=== PATIENT | female | born 1955 | race Caucasian/White ===

== ENCOUNTER 2016-11-25 11:25 | Inpatient (IN) | payer OTHER ==
[~2016-11-25 11:25] MED LIST: BACITRACIN 50,000 UNITS/10 ML SYR IRR ONE; BUPIVACAINE/EPI 0.25% 30 ML SDV ONE; DEXMEDETOMIDINE HCL 400 MCG in NS 100 ML IV SCH; THROMBIN (BOVINE) 5,000 UNIT VIAL TP ONE; ceFAZolin 2 GM/DEXTROSE 100 ML IV ONE
[2016-11-25] MEDS ORDERED: LR 1,000 ML IV ONE (12:41)
[2016-11-25] MEDS ORDERED: LIDOCAINE 1% 5 ML SDV ID PRN (12:41)
[2016-11-25] MEDS ORDERED: CEFAZOLIN 2 GM/DEXTROSE/100 ML BAG IV ONE (12:45)
[2016-11-25] MEDS ORDERED: DIAZEPAM 10 MG/2 ML SYR IVP PRN (13:02)
[2016-11-25] MEDS ORDERED: morphINE PCA 30 MG/30 ML PCA IV PRN (13:02)
[2016-11-25] MEDS ORDERED: HYDROmorphONE/DILAUDID 1 MG/ML SYR IVP PRN (13:02)
[2016-11-25] MEDS ORDERED: ONDANSETRON DISINTEGRATING 4 MG TAB PO PRN (13:02)
[2016-11-25] MEDS ORDERED: diphenhydrAMINE 25 MG CAP PO PRN (13:02)
[2016-11-25] MEDS ORDERED: ACETAMINOPHEN 325 MG TAB PO PRN (13:02)
[2016-11-25] MEDS ORDERED: BISACODYL 10 MG SUPP PR PRN (13:02)
[2016-11-25] MEDS ORDERED: TEMAZEPAM 15 MG CAP PO PRN (13:02)
[2016-11-25] MEDS ORDERED: POLYETHYLENE GLYCOL 3350 17 GM PKT PO PRN (13:02)
[2016-11-25] MEDS ORDERED: oxyCODONE IR 5 MG TAB PO PRN (13:02)
[2016-11-25] MEDS ORDERED: MAGNESIUM HYDROXIDE 30 ML UDCUP PO PRN (13:02)
[2016-11-25] MEDS ORDERED: NALOXONE HCL 0.4 MG/ML INJ IVP PRN (13:02)
[2016-11-25] MEDS ORDERED: LACTULOSE 20 GM/30 ML UDCUP PO PRN (13:02)
[2016-11-25] MEDS ORDERED: ONDANSETRON 4 MG/2 ML VIAL IVP PRN (13:02)
[2016-11-25] MEDS ORDERED: fentaNYL 100 MCG/2 ML INJ ONE ×3 (13:06→17:06)
[2016-11-25] MEDS ORDERED: NS W/ 20 KCl/L 1,000 ML IV SCH (13:15)
[2016-11-25] MEDS ORDERED: DEXAMETHASONE 4 MG/ML VIAL ONE ×2 (13:24)
[2016-11-25] MEDS ORDERED: ROCURONIUM 50 MG/5 ML VIAL ONE (13:25)
[2016-11-25] MEDS ORDERED: PROPOFOL/EMULSION 500 MG/50 ML BOTTLE IV ONE (13:25)
[2016-11-25] MEDS ORDERED: ONDANSETRON 4 MG/2 ML VIAL ONE (13:25)
[2016-11-25] MEDS ORDERED: LIDOCAINE 2% 5 ML SDV ONE (13:25)
[2016-11-25] MEDS ORDERED: SCOPOLAMINE HYDROBROMIDE 1.5 MG PATCH TD ONE (13:34)
[2016-11-25] MEDS ORDERED: PHENYLEPHRINE HCL 100 MCG/ML SYR ONE ×2 (14:00→14:44)
[2016-11-25] MEDS ORDERED: epHEDrine SULFATE 10 MG/ML SYR ONE (14:49)
[2016-11-25] MEDS ORDERED: PROPOFOL 200 MG/20 ML VIAL ONE (15:43)
--- NOTE | 2016-11-25 16:57 | SOAPPROG ---
SOAP Progress Note Assessment/Plan: Post Op Visit: S: Awake and alert. NAD. Pt with expected lower back pain O: AFVSS/PERRLA/EOMI no droop CN 2-12 grossly intact +lt touch 5/5 BUE/BLE = CDI HARINDER in place A/P: 61 yo female that is s/p TLIF L3/4 -orders in place -call with any questions or concerns -seen by Dr Lopez -to floor for overnight stay 11/25/16 16:55 ICD10 Worksheet Patient Problems: Problems Problem Status Onset Arthrodesis status Acute Lumbar radicular pain Acute Lumbar stenosis Acute - ICD10 Problem Qualifiers (1) Lumbar stenosis (2) Lumbar radicular pain (3) Arthrodesis status
[2016-11-25] MEDS ORDERED: OXYCODONE/APAP 5/325 TAB ONE (18:13)
--- NOTE | 2016-11-25 18:27 | GOP ---
[f rep st] OPERATIVE REPORT DATE OF OPERATION: 11/25/2016 SURGEON: Britton oLpez MD NEUROSURGEON: Britton Lopez MD. RIM FIRE PRIMING OPERATOR: Regan Mora PA-C PREOPERATIVE DIAGNOSIS: Lumbar spondylolisthesis at L3-4, right greater than left lumbosacral radic ulopathy. POSTOPERATIVE DIAGNOSIS: Lumbar spondylolisthesis at L3-4, right greater than left lumbosacral radi culopathy. PROCEDURE PERFORMED: Posterior-lateral intervertebral arthrodesis same level L3-4 with a bilateral decompressions at L3-4 and a right-sided approach to the interspace (54132), same-incision bone elma t harvest, microscope, fluoroscopy and intraoperative frameless Stealth stereotaxy, posterior nonseg mental instrumentation across a single interspace L3-4, placement of biomechanical intervertebral de vice L3-4. FINDINGS: ESTIMATED BLOOD LOSS: 100 cc. INDICATIONS: The patient is a 61-year-old who had multilevel lumbar spondylosis, worse at L3-4, L4- 5, L5-S1, but had evidence of spondylolisthesis at L3-4 with instability on flexion, extension. X-r ays in her right neural foramen, in particular exiting right L3 nerve root at L3-4 was pinched in th e far lateral neural foramen related to the spondylolisthesis at that level. She failed conservativ e management and desired to have surgery. Risk of pseudoarthrosis, adjacent segment disease, and a possible need for future surgery was discussed. She understood these risks, and she did want to pro ceed. DESCRIPTION OF PROCEDURE: Patient was taken to the operating room, placed in a supine position. Ge neral anesthesia was begun. She was flipped prone on the Fabio table. Care was taken to pad all points of contact. Her back was sterilely prepped and draped in the usual fashion. A localizing x- ray was taken. We made a 4 cm incision above the L4-5 interspace. The subcutaneous tissues were di ssected using Bovie cautery down to the fascia and a subperiosteal dissection was made down the lami na of L3-4. Self-retaining retractor was placed. Her L3-4 facet joints were very hypertrophic. We denuded these facet joints and decorticated the transverse processes at L3-4. A localizing x-ray w as taken. We attached a Stealth reference frame to the L3 spinous process, and using an O-arm spin, we placed pedicle screws bilaterally at L3 and L4. We performed another O-arm spin and all the scr ews were in excellent position. We stimulated them, and they all stimulated at acceptable levels. We then took 35 mm rods, placed them down over the screws, and distracted between L3 and L4 and redu taras the spondylolisthesis by a few millimeters in doing so. We removed all the soft tissue and bone at L3-4 and then harvested the inferior L3 spinous process for autologous grafting purposes. We th en, under the operating microscope, opened the ligamentum flavum and performed a bilateral decompres beti at the L3-4 level. We performed a complete right L3-4 facetectomy and decompressed the exiting L3 nerve root in the neural foramen. Under the scope, we incised the L3-4 disk, removed the disk, and the cartilaginous endplates. There did appear to be a Schmorl's node with disk in the rostral p ortion of the L4 vertebral body. All this was removed. We roughened the subchondral bone to create arthrodesis at L3-4 and chosen an expandable 10 x 23 mm Elevate cage. It is inserted under fluoros copic guidance, expanded. We placed bone autograft and BMP into the disk space and we were happy wi th all of the hardware that was in the disk space itself. We then relaxed distraction at L3-4. Fin al tightened of the cap screws according to company specification, and placed a subfascial drain. S hot final x-rays. We were happy with all the instrumentation. We then closed the incision in multi ple layers using Vicryl sutures and a running PDS was placed in the skin itself. There were no comp lications. COMPLICATIONS: None. INSTRUMENTATION USED: [email or web address] pedicle screw instrumentation with a 10 x 23 mm Elevate cage . /[id number]/MODL
[2016-11-25] MEDS: FAMOTIDINE 20 MG TAB PO SCH (20:52)
[2016-11-25] MEDS: SENNOSIDES/DOCUSATE SODIUM TAB PO SCH (20:53)
[2016-11-25] MEDS: DIAZEPAM 5 MG TAB PO PRN (20:53)
[2016-11-25] MEDS ORDERED: FAMOTIDINE 20 MG/NACL 50 ML IV SCH (21:00)
[2016-11-25] MEDS: GABAPENTIN 300 MG CAP PO SCH (23:14)
[2016-11-25] MEDS: HYDROCODONE/APAP 10/325 TAB PO PRN ×2 (23:14→23:47)
[2016-11-26] MEDS: METHOCARBAMOL 750 MG TAB PO PRN ×2 (05:08→11:58)
[2016-11-26] MEDS: HYDROCODONE/APAP 10/325 TAB PO PRN ×4 (05:42→20:52)
--- NOTE | 2016-11-26 07:15 | NEUSURGPN ---
Date of Surgery: 11/25/16 Post Op Day: 1 Assessment/Plan: Assessment: 61 yo female that is s/p TLIF L3/4 POD #1 Plan: -s/p TLIF L3/4: pt with expected lower back pain, legs feel good -post op xrays pending -brace when out of bed -warning signs given -PT/OT ordered -HARINDER in place-will dc later today -orders in place -call with any questions or concerns -seen by Dr Lopez 11/25/16 16:55 Subjective: Awake and alert. NAD. Eating/drinking and voiding. No f/c/n/v/d. No ortiz/neck/ chest/abd or gu complaints. Objective: AFVSS/PERRLA/EOMI no droop CN 2-12 grossly intact +lt touch 5/5 BUE/BLE = CDI HARINDER in place-to be removed later today Neuro Check Frequency: per routine Urinary Catheter in Place: No - Physician Discussed Patient with : John Patient Seen by : John Neurosurgery Physical Exam - Vitals, I&O, Labs I and O 11/25/16 11/26/16 11/27/16 05:59 05:59 05:59 Intake Total 2350 Output Total 1077 Balance 1273 Intake: Oral (ml) 450 IV Intake (ml) 1800 IV Infused (ml) 100 ceFAZolin 1 GM/DEXTROSE 100 50 ml @ 200 mls/hr IV Q8HRS DUONG Rx#:[id number] Output: Urine (ml) 900 Bedside Commode 900 Estimated Blood Loss (ml) 150 Wound Drainage (ml) 27 #1 Back Fabio Medrano 27 Other: Intake Quantity Yes Sufficient Number of Voids Bedside Commode 1 Vital Signs Temp Pulse Resp BP Pulse Ox 36.8 C 71 16 106/72 96 11/26/16 04:00 11/26/16 04:00 11/26/16 04:00 11/26/16 04:00 11/26/16 04:00 ICD10 Worksheet Patient Problems: Problems Problem Status Onset Arthrodesis status Acute Lumbar radicular pain Acute Lumbar stenosis Acute - ICD10 Problem Qualifiers (1) Lumbar stenosis (2) Lumbar radicular pain (3) Arthrodesis status
[2016-11-26] MEDS: SENNOSIDES/DOCUSATE SODIUM TAB PO SCH ×2 (09:44→20:53)
[2016-11-26] MEDS: FAMOTIDINE 20 MG TAB PO SCH ×2 (09:44→20:52)
[2016-11-26] MEDS: GABAPENTIN 300 MG CAP PO SCH (20:53)
[2016-11-26] MEDS: DIAZEPAM 5 MG TAB PO PRN (20:55)
[2016-11-27] MEDS: HYDROCODONE/APAP 10/325 TAB PO PRN ×2 (06:12→12:05)
[2016-11-27 07:48] VITALS: BP 100/62; PULSE 95; RESP 14; TEMP 99.6; O2SAT 91
--- NOTE | 2016-11-27 07:58 | NEUSURGPN ---
Date of Surgery: 11/25/16 Post Op Day: 2 Assessment/Plan: 61 yo female that is s/p TLIF L3/4 POD #2 Plan: -neuro stable -pain controlled -post op xrays look good -brace when out of bed -PT/OT -dc home today Subjective: Sitting up in bedside chair. No LE symptoms. Objective: Awake. Alert. PERRL. EOMI Muscle strength full at 5/5 Sensation intact incision with dressing c/d/i - Physician Discussed Patient with Dr.: John Neurosurgery Physical Exam - Vitals, I&O, Labs I and O 11/26/16 11/27/16 11/28/16 05:59 05:59 05:59 Intake Total 2350 300 Output Total 1077 250 Balance 1273 50 Intake: Oral (ml) 450 300 IV Intake (ml) 1800 IV Infused (ml) 100 ceFAZolin 1 GM/DEXTROSE 100 50 ml @ 200 mls/hr IV Q8HRS DUONG Rx#:[id number] Output: Urine (ml) 900 250 Bedside Commode 900 Toilet 250 Estimated Blood Loss (ml) 150 Wound Drainage (ml) 27 #1 Back Fabio Medrano 27 Other: Intake Quantity Yes Sufficient Number of Voids Bedside Commode 1 Toilet 3 Vital Signs Temp Pulse Resp BP Pulse Ox 37.6 C 95 14 100/62 91 L 11/27/16 07:47 11/27/16 07:47 11/27/16 07:47 11/27/16 07:47 11/27/16 07:47 ICD10 Worksheet Patient Problems: Problems Problem Status Onset Arthrodesis status Acute Lumbar radicular pain Acute Lumbar stenosis Acute
[2016-11-27] MEDS: METHOCARBAMOL 750 MG TAB PO PRN (09:34)
[2016-11-27] MEDS: SENNOSIDES/DOCUSATE SODIUM TAB PO SCH (09:35)
[2016-11-27] MEDS: FAMOTIDINE 20 MG TAB PO SCH (09:35)
[2016-11-28] MEDS ORDERED: ENOXAPARIN 40 MG/0.4 ML SYR SC SCH (09:00)
== END 2016-11-27 12:10 | disposition home or self-care (01) | DRG 460 ==
LOC: EEVIPCON 11:25 → F3E 11:25 → F3N 19:34
PROVIDERS: ADMIT Neurological Surgery; ATTEND Neurological Surgery
PROC: 0SB20ZZ Excision of Lumbar Vertebral Disc, Open Approach (ICD-10-PCS; principal; 2016-11-25 13:00)
PROC: 3E0U0GB Introduction of Recombinant Bone Morphogenetic Protein into Joints, Open Approach (ICD-10-PCS; principal; 2016-11-25 13:00)
PROC: 0SG00AJ Fusion of Lumbar Vertebral Joint with Interbody Fusion Device, Posterior Approach, Anterior Column, Open Approach (ICD-10-PCS; principal; 2016-11-25 13:00)
PROC: 00NY0ZZ Release Lumbar Spinal Cord, Open Approach (ICD-10-PCS; principal; 2016-11-25 13:00)
PROC: 0SG0071 Fusion of Lumbar Vertebral Joint with Autologous Tissue Substitute, Posterior Approach, Posterior Column, Open Approach (ICD-10-PCS; principal; 2016-11-25 13:00)
DX: M43.16 Spondylolisthesis, lumbar region (principal); M48.06 Spinal stenosis, lumbar region; M54.16 Radiculopathy, lumbar region
CPT/HCPCS: 97161-GP; 97166-GO; C1713; J0690; J1100; J2370; J2405; J2704; J3010

== ENCOUNTER → 2017-05-17 | Day surgery (SDC) | payer OTHER ==
[~2017-05-17] MED LIST changes: -BACITRACIN 50,000 UNITS/10 ML SYR IRR ONE; +BUPIVACAINE 0.25% 30 ML SDV ONE; +BUPIVACAINE 0.5% 10 ML SDV ONE; -BUPIVACAINE/EPI 0.25% 30 ML SDV ONE; +DEPO METHYLPREDNISOLONE 40 MG/ML SDV ONE; -DEXMEDETOMIDINE HCL 400 MCG in NS 100 ML IV SCH; -THROMBIN (BOVINE) 5,000 UNIT VIAL TP ONE; -ceFAZolin 2 GM/DEXTROSE 100 ML IV ONE
== END | disposition home or self-care (01) ==
LOC: FIMAGING 08:05
PROVIDERS: ATTEND Neurological Surgery
PROC: 3E0U33Z Introduction of Anti-inflammatory into Joints, Percutaneous Approach (ICD-10-PCS; principal; 2017-05-17)
DX: M54.16 Radiculopathy, lumbar region (principal)
CPT/HCPCS: J1030

== ENCOUNTER 2017-09-01 08:47 | Day surgery (SDC) | payer OTHER ==
--- NOTE | 2017-09-01 08:46 | PDHPUP ---
History & Physical Update H&P update statement: This history and physical update is based on an assessment of the patient which was completed after admission or registration (within 24 hours), but prior to the surgery/procedure. H&P update: H&P reviewed & patient examined, no change in patient's condition since H&P completed
[2017-09-01] MEDS ORDERED: LR 1,000 ML IV ONE (08:56)
[2017-09-01] MEDS ORDERED: LIDOCAINE 1% 2 ML INJ ID PRN (08:56)
[2017-09-01] MEDS ORDERED: GABAPENTIN 300 MG CAP PO ONE (08:57)
[2017-09-01] MEDS ORDERED: ACETAMINOPHEN 500 MG TAB PO ONE (08:57)
[2017-09-01] MEDS ORDERED: ceFAZolin 2 GM/SWFI 2 GM/20 ML SYR IVP ONE (08:57)
[2017-09-01] MEDS ORDERED: ONDANSETRON 4 MG/2 ML VIAL IVP PRN ×2 (09:51→12:15)
[2017-09-01] MEDS ORDERED: NALOXONE HCL 0.4 MG/ML INJ IVP PRN ×2 (09:51→12:15)
[2017-09-01] MEDS ORDERED: MIDAZOLAM 2 MG/2 ML VIAL IVP ONE ×2 (09:51→12:15)
[2017-09-01] MEDS ORDERED: ALBUTEROL 3 ML DEYVIAL IH PRN ×2 (09:51→12:15)
[2017-09-01] MEDS ORDERED: fentaNYL 100 MCG/2 ML INJ IVP PRN ×2 (09:51→12:15)
[2017-09-01] MEDS ORDERED: BUPIVACAINE 0.25% 30 ML SDV ONE (09:52)
[2017-09-01] MEDS ORDERED: THROMBIN (BOVINE) 5,000 UNIT VIAL TP ONE (09:52)
[2017-09-01] MEDS ORDERED: CHLORHEXIDINE GLUC HIBICLENS 118 ML BTL TP ONE (09:52)
[2017-09-01] MEDS ORDERED: DEPO METHYLPREDNISOLONE 40 MG/ML SDV ONE (09:53)
[2017-09-01] MEDS ORDERED: BACITRACIN 50,000 UNITS/10 ML SYR IRR ONE (09:53)
--- NOTE | 2017-09-01 09:53 | PDANEPAE ---
ANE History of Present Illness L5-S1 Decompression ANE Past Medical History - Cardiovascular History Hx Hypertension: No Hx Arrhythmias: No Hx Chest Pain: No Hx Coronary Artery / Peripheral Vascular Disease: No Hx CHF / Valvular Disease: No Hx Palpitations: No - Pulmonary History Hx COPD: No Hx Asthma/Reactive Airway Disease: No Hx Recent Upper Respiratory Infection: No Hx Oxygen in Use at Home: No Hx Sleep Apnea: No Sleep Apnea Screening Result - Last Documented: Negative - Neurologic History Hx Cerebrovascular Accident: No Hx Seizures: No Hx Dementia: No Neurologic History Comment: pain in right lower back, right buttock and down right leg. increase in back pain to l3-4 - Endocrine History Hx Diabetes: No - Renal History Hx Renal Disorders: No - Liver History Hx Hepatic Disorders: No - Neurological & Psychiatric Hx Hx Neurological and Psychiatric Disorders: Yes Neurological / Psychiatric History Comment: ' neck injury-neck stiffness/ discomfort. SI joint "fused itself"-discomfort pelvic area-L side. - Cancer History Hx Cancer: No - Congenital Disorder History Hx Congenital Disorders: No - GI History Hx Gastrointestinal Disorders: No - Other Health History Other Health History: wears glasses for night driving - Chronic Pain History Chronic Pain: Yes (L pelvic area/SI joint) - Surgical History Prior Surgeries: L4/L4 FUSION 3-17. 35 yrs ago thoracic outlet syndrome surgery. right rtc repair early 1999's. right inguinal hernia repair 2004 ANE Review of Systems Review of Systems: - Exercise capacity METS (RN): 4 METS ANE Patient History - Allergies Allergies/Adverse Reactions: No Known Allergies Allergy (Verified 08/31/17 17:32) - Home Medications Home Medications: Gabapentin [Neurontin 300 MG (*)] 300 mg PO HS 11/01/16 [Last Taken 08/31/17 20: 00] Tylenol 08/31/17 [Last Taken 08/31/17 20:00] - Smoking Hx Smoking Status: Never smoked - Family Anes Hx Family Hx Anesthesia Complications: none ANE Labs/Vital Signs - Vital Signs Height: 160.02 cm Weight: 65.771 kg ANE Physical Exam - Airway Neck exam: FROM Mallampati Score: Class 2 Mouth exam: normal dental/mouth exam - Pulmonary Pulmonary: clear to auscultation - Cardiovascular Cardiovascular: regular rate and rhythym - ASA Status ASA Status: II ANE Anesthesia Plan Anesthesia Plan: general endotracheal anesthesia Total IV Anesthesia: Yes
[2017-09-01] MEDS ORDERED: fentaNYL 100 MCG/2 ML INJ ONE ×3 (09:56→12:40)
[2017-09-01] MEDS ORDERED: ROCURONIUM 50 MG/5 ML VIAL ONE (09:57)
[2017-09-01] MEDS ORDERED: PROPOFOL/EMULSION 500 MG/50 ML BOTTLE IV ONE ×2 (09:57)
[2017-09-01] MEDS ORDERED: ONDANSETRON 4 MG/2 ML VIAL ONE (10:01)
[2017-09-01] MEDS ORDERED: DEXAMETHASONE 4 MG/ML VIAL ONE ×2 (10:01)
[2017-09-01] MEDS ORDERED: METOCLOPRAMIDE 10 MG/2 ML VIAL ONE (10:01)
[2017-09-01] MEDS ORDERED: RANITIDINE 50 MG/2 ML VIAL ONE (10:02)
[2017-09-01 10:10] VITALS: PULSE 82
[2017-09-01] MEDS ORDERED: SCOPOLAMINE HYDROBROMIDE 1 MG/3 DAYS PATCH TD SCH (10:15)
[2017-09-01] MEDS ORDERED: SUGAMMADEX SODIUM 200 MG/2 ML VIAL IVP ONE (11:25)
--- NOTE | 2017-09-01 12:08 | SOAPPROG ---
SOAP Progress Note Assessment/Plan: Post Op Visit: S: Awake and alert. NAD. Pt with expected lower back pain O: AFVSS/PERRLA/EOMI no droop CN 2-12 grossly intact +lt touch 5/5 BUE/BLE = CDI A/P: 62 yo female that is s/p left L5/S1 LRD -orders in place -dc when criteria met -call with any questions or concerns -follow up with Dr Coto team in 2-3 weeks 09/01/17 12:07 Objective: Vital Signs Temp Pulse Resp BP Pulse Ox 36.0 C 82 114 H 135/80 H 96 09/01/17 11:55 09/01/17 10:01 09/01/17 11:56 09/01/17 11:55 09/01/17 11:56 ICD10 Worksheet Patient Problems: Problems Problem Status Onset Arthrodesis status Acute Lumbar radicular pain Acute Lumbar stenosis Acute
--- NOTE | 2017-09-01 12:14 | POSTANESTH ---
Post Anesthetic Evaluation Cardiovascular Status: Normal, Stable Respiratory Status: Normal, Stable Level of Consciousness/Mental Status: Can Participate in Eval, Mildly Sleepy, Arousable Pain Control: Adequate, Prn Tx Ordered Nausea/Vomiting Control: Adequate, Prn Tx Ordered Complications Possibly Related to Anesthesia: None Noted
[2017-09-01] MEDS ORDERED: OXYCODONE/APAP 5/325 TAB PO PRN (12:15)
[2017-09-01] MEDS ORDERED: HYDROmorphONE/DILAUDID 1 MG/ML INJ IVP PRN (12:15)
[2017-09-01] MEDS ORDERED: HYDROCODONE/APAP 5/325 TAB PO PRN (12:15)
[2017-09-01] MEDS ORDERED: DEXAMETHASONE 4 MG/ML VIAL IVP PRN (12:15)
[2017-09-01] MEDS ORDERED: HYDROmorphONE/DILAUDID 1 MG/ML INJ ONE (12:16)
[2017-09-01] MEDS: HYDROmorphONE/DILAUDID 1 MG/ML INJ IVP PRN ×3 (12:17→12:37)
[2017-09-01 12:44] VITALS: O2SAT 97
[2017-09-01 13:23] VITALS: TEMP 98.2
[2017-09-01 13:48] VITALS: BP 125/80; RESP 5
--- NOTE | 2017-09-01 17:50 | GOP ---
[f rep st] OPERATIVE REPORT DATE OF OPERATION: 09/01/2017 SURGEON: Britton Lopez MD NEUROSURGEON: Britton Lopez MD CANINE SERVICE TEACHER: Regan Mora PA-C PREOPERATIVE DIAGNOSIS: 1. Mild degenerative spondylolisthesis, L5 on S1. 2. Left S1 radiculopathy. 3. Left lateral recess stenosis, L5-S1. POSTOPERATIVE DIAGNOSIS: 1. Mild degenerative spondylolisthesis, L5 on S1. 2. Left S1 radiculopathy. 3. Left lateral recess stenosis, L5-S1. PROCEDURE PERFORMED: 1. Left L5-S1 hemilaminotomy and medial facetectomy with a left lateral recess decompression (74389) . 2. Microscope. FINDINGS: ESTIMATED BLOOD LOSS: 10 mL. INDICATIONS: The patient is a 62-year-old who underwent a successful single-level fusion at L3-4 for degenerative spondylolisthesis a few months ago and had significant relief of her preoperative pain. Then she started developing new left buttock and radiating posterior leg discomfort that was insidi ous and relentless. MRI was done, and we felt there was a possibility it could be a problem at the s urgery site; there did not appear to be any issues at the surgery site at the L3-4 level; but indeed she had a mild spondylolisthesis 2 levels below her surgery at L5-S1 (this does not appear to be rela estela to the surgery itself), and there was some left lateral recess stenosis and compression of the le ft S1 nerve root. She failed medical management. She desired to have surgery. The risk of CSF leak , nerve injury, disk herniation, and possible need for more advanced spine surgery was discussed; chuyita weinberg, I felt this simple low decompressive procedure had a high probability of success. She wanted to proceed. DESCRIPTION OF PROCEDURE: The patient was taken to the operating room and placed in supine position. General anesthesia was begun. She was flipped prone on the Ady frame. Care was taken to pad al l points of contact. Her back was sterilely prepped and draped in the usual fashion. A localizing x -ray was taken. We made a midline 15 mm incision above the L5-S1 interspace. Subcutaneous tissue wa s dissected using Bovie cautery down through the fascia, and subperiosteal dissection was made down t o the L5-S1 lamina. Self-retaining retractor was placed. The operating microscope was introduced, w mirah showed a left L5-S1 hemilaminotomy with a minimal medial facetectomy, and we opened the underlyi ng ligamentum flavum, decompressed the lateral thecal sac, and worked our way out to the S1 root. We decompressed adjacent to the S1 pedicle. Indeed, the medial portion of the superior articular proce ss of the sacrum was really dramatically compressing the left S1 nerve. We decompressed along the ne rve all the way up to above the L5-S1 disk and then mobilized the nerve and swept it medially. The r ostral edge of the L5-S1 disk was prolapsed, and there was a small subannular fragment of disk in erich t location. We simply took a black hook, the disk split open, and we were able to fish this small fr agment out. We did not perform any kind a radical diskectomy. We never used a blade on the anulus o f the L5-S1 disk. We then irrigated with antibiotic saline solution. The nerve was nicely decompres sed, and we placed a little Gelfoam with Solu-Medrol in and over the left S1 nerve. We then closed i n multiple layers using Vicryl sutures. Steri-Strips were applied to the skin. The patient was reve rsed from anesthesia, extubated, and transferred to recovery room in stable condition. COMPLICATIONS: None. /[id number]/MODL
[2017-09-04] MEDS ORDERED: PATCH REMOVAL 1 EA PATCH TD SCH (10:06)
== END 2017-09-01 14:20 | disposition home or self-care (01) ==
LOC: FSGY 08:47 → EEVIPCON 08:47 → EDSTATUS 10:30 → FSGY 14:20
PROVIDERS: ATTEND Neurological Surgery
PROC: 8E0WXBZ Computer Assisted Procedure of Trunk Region (ICD-10-PCS; principal; 2017-09-01 10:30)
PROC: 0SB40ZZ Excision of Lumbosacral Disc, Open Approach (ICD-10-PCS; principal; 2017-09-01 10:30)
PROC: 00NY0ZZ Release Lumbar Spinal Cord, Open Approach (ICD-10-PCS; principal; 2017-09-01 10:30)
DX: M43.17 Spondylolisthesis, lumbosacral region (principal); M48.07 Spinal stenosis, lumbosacral region; M54.18 Radiculopathy, sacral and sacrococcygeal region; Z98.1 Arthrodesis status
CPT/HCPCS: J0171; J0690; J1030; J1100; J1170; J2250; J2405; J2704; J2765; J2780; J3010